=== PATIENT | male | born 1950 | race Caucasian/White ===

== ENCOUNTER 2018-05-27 20:18 | Emergency (ER) | payer MEDICARE, MEDICAID ==
[~2018-05-27] VITALS: Ht 180.3 cm; Wt 77.1 kg
[2018-05-27 20:32] VITALS: BP 132/76
== END 2018-05-27 21:43 | disposition home or self-care (01) ==
LOC: ER 20:20
DX: S83.8X2A Sprain of other specified parts of left knee, initial encounter (principal); E78.00 Pure hypercholesterolemia, unspecified; W01.0XXA Fall on same level from slipping, tripping and stumbling without subsequent striking against object, initial encounter; Y93.89 Activity, other specified; Y92.811 Bus as the place of occurrence of the external cause; Y99.8 Other external cause status
CPT/HCPCS: 73564-TC